=== PATIENT | male | born 1980 | race Two or more races ===

== ENCOUNTER 2022-04-02 14:29 | Emergency (ER) | payer OTHER ==
[~2022-04-02] VITALS: Ht 167.6 cm; Wt 90.7 kg
[2022-04-02 14:40] VITALS: BP 150/94
[2022-04-02] MEDS ORDERED: NAPR-1192 PO (16:41)
[2022-04-02] MEDS ORDERED: KETOROLAC TROMETHAMINE 15 MG/ML VIAL ONE (16:46)
--- NOTE | 2022-04-02 16:55 | NUR ---
Patient discharged to home in stable condition. Written and verbal after care instructions given. Patient verbalizes understanding of instruction.
[2022-04-02] MEDS ORDERED: KETOROLAC TROMETHAMINE INJ 60 MG/2 ML VIAL IM ONE (17:00)
== END 2022-04-02 16:55 | disposition home or self-care (01) ==
LOC: ER 14:59
DX: M25.522 Pain in left elbow (principal); G56.22 Lesion of ulnar nerve, left upper limb; Z79.899 Other long term (current) drug therapy
CPT/HCPCS: 73080; 96372; 99283; J1885